=== PATIENT | male | born 1955 | race Caucasian/White ===

== ENCOUNTER 2018-03-29 13:49 | Emergency (ER) | payer OTHER ==
--- NOTE | 2018-03-29 14:55 | EDPHY ---
H & P Time Seen by Provider: 03/29/18 14:53 HPI/ROS: Chief complaint. Abdominal pain HPI. 63-year-old male presents emergency department with abdominal pain that began this morning. Initially it was somewhat generalized and now is right lower quadrant and radiates to his right testicle. He has no urinary symptoms. No nausea vomiting diarrhea. Not worse with movement but just hurts all the time. No fever. No chest pain or shortness of breath. No previous abdominal surgery or abdominal problems. ROS 10 systems were reviewed and negative with the exception of the elements mentioned in the history of present illness Past Medical/Surgical History: Eye surgery, orthopedic surgery, hypertension Social History: , daily smoker, no alcohol Smoking Status: Current every day smoker Physical Exam: General Appearance: Alert well-developed male moderate distress vital signs are stable Eyes: Pupils equal and round no pallor or injection. ENT, Mouth: Mucous membranes are moist. Respiratory: There are no retractions, lungs are clear to auscultation. Cardiovascular: Regular rate and rhythm. Gastrointestinal: Abdomen is soft with tenderness the in the right lower quadrant but especially in the right inguinal area. No masses. Normal bowel sounds. I stood the patient up and examined him for hernia and I do not see any evidence of direct or indirect hernia Neurological: Awake and alert, sensory and motor exams grossly normal. Skin: Warm and dry, no rashes. Musculoskeletal: Neck is supple nontender. Extremities symmetrical, full range of motion. Psychiatric: Patient is oriented X 3, there is no agitation. Constitutional: Initial Vital Signs Temperature (C) 36.5 C 03/29/18 13:54 Heart Rate 73 03/29/18 13:54 Respiratory Rate 18 03/29/18 13:54 Blood Pressure 137/88 H 03/29/18 13:54 O2 Sat (%) 96 03/29/18 13:54 O2 Delivery Mode Room Air Allergies/Adverse Reactions: No Known Allergies Allergy (Unverified 10/09/13 02:16) Home Medications: Medication Instructions Recorded Amoxicillin 10/09/13 Flexeril 10/09/13 amLODIPine BESYLATE [Norvasc 5 mg 5 mg PO DAILY #30 tab 10/09/13 (RX)] oxyCODONE/APAP 5/325 [Percocet 1 - 2 tab PO Q4H PRN #15 tab 10/09/13 5/325 (RX)] traMADOL 10/09/13 Tamsulosin HCl [Flomax 0.4 MG (*)] 0.4 mg PO DAILY #10 cap 03/29/18 Medical Decision Making - Diagnostics Imaging Results: Imaging Impressions Abdomen CT 03/29/18 15:13 Impression: 1. Distended bladder with mild dilatation of the collecting system and ureters. Moderately enlarged prostate. Consider bladder outlet obstruction. 2. 3 mm calcification along the anterior wall of the gallbladder that could represent small calculus or calcified polyp. 3. Heterogeneous enhancement of the liver probably from mild hepatic steatosis. 4. Stable benign-appearing bibasilar pulmonary nodules. 5. No CT evidence of appendicitis, abscess or bowel obstruction. Findings discussed with Lowell Hutchins M.D. at 16:33 hour, 03/29/2018. CT abdomen pelvis with IV contrast reviewed by me and discussed with Dr. Emanuel shows a distended bladder with 1800 mL of urine in the bladder. Distended ureters bilaterally. No evidence for kidney stone. Normal appendix. BPH is present Procedures: IV normal saline Morphine, Zofran IV ED Course/Re-evaluation: Re-evaluation at 4:35 p.m.. Patient is stable. Patient and I discussed imaging and lab results. We discussed treatment plan including recommendation for catheter. He expresses understanding and agreement Bladder scan shows greater than 1300 mL of urine after voiding Salas catheter is placed--greater than 1 L out when I checked in urine still flowing into the Salas I consulted discussed the case with Dr. Juarez for Urology who recommends a dose of Flomax now and prescription. He recommends leaving the catheter in and will see the patient in the next few days. I discussed this treatment plan with patient and family. We discussed CT and lab results. We discussed importance of follow-up and further evaluation. They expressed understanding and agreement Differential Diagnosis: I considered kidney stone, urinary tract infection, appendicitis, hernia. Patient has BPH with a chronically distended bladder. - Data Points Laboratory Results: Laboratory Results 03/29/18 14:40 03/29/18 14:40 03/29/18 03/29/18 03/29/18 15:55 14:40 14:40 WBC 9.46 10^3/uL 10^3/uL (3.80-9.50) RBC 5.00 10^6/uL 10^6/uL (4.40-6.38) Hgb 15.6 g/dL g/dL (13.7-17.5) Hct 46.0 % % (40.0-51.0) MCV 92.0 fL fL (81.5-99.8) MCH 31.2 pg pg (27.9-34.1) MCHC 33.9 g/dL g/dL (32.4-36.7) RDW 13.0 % % (11.5-15.2) Plt Count 234 10^3/uL 10^3/uL (150-400) MPV 11.1 fL fL (8.7-11.7) Neut % (Auto) 69.2 % % (39.3-74.2) Lymph % (Auto) 24.6 % % (15.0-45.0) [place] % (Auto) 4.8 % % (4.5-13.0) Eos % (Auto) 0.7 % % (0.6-7.6) Baso % (Auto) 0.4 % % (0.3-1.7) Nucleat RBC Rel Count 0.0 % % (0.0-0.2) Absolute Neuts (auto) 6.54 10^3/uL H 10^3/uL (1.70-6.50) Absolute Lymphs (auto) 2.33 10^3/uL 10^3/uL (1.00-3.00) Absolute Monos (auto) 0.45 10^3/uL 10^3/uL (0.30-0.80) Absolute Eos (auto) 0.07 10^3/uL 10^3/uL (0.03-0.40) Absolute Basos (auto) 0.04 10^3/uL 10^3/uL (0.02-0.10) Absolute Nucleated RBC 0.00 10^3/uL 10^3/uL (0-0.01) Immature Gran % 0.3 % % (0.0-1.1) Immature Gran # 0.03 10^3/uL 10^3/uL (0.00-0.10) Sodium 139 mEq/L mEq/L (135-145) Potassium 3.9 mEq/L mEq/L (3.5-5.2) Chloride 109 mEq/L mEq/L (97-110) Carbon Dioxide 22 mEq/l mEq/l (22-31) Anion Gap 8 mEq/L mEq/L (6-14) BUN 15 mg/dL mg/dL (7-23) Creatinine 0.6 mg/dL L mg/dL (0.7-1.3) Estimated GFR > 60 Glucose 119 mg/dL H mg/dL (70-100) Calcium 10.0 mg/dL mg/dL (8.5-10.4) Urine Color YELLOW Urine Appearance MODERATELY TURBID Urine pH 7.0 (5.0-7.5) Ur Specific [place] 1.009 (1.002-1.030) Urine Protein NEGATIVE (NEGATIVE) Urine Ketones NEGATIVE (NEGATIVE) Urine Blood 1+ H (NEGATIVE) Urine Nitrate NEGATIVE (NEGATIVE) Urine Bilirubin NEGATIVE (NEGATIVE) Urine Urobilinogen NEGATIVE EU EU (0.2-1.0) Ur Leukocyte Esterase NEGATIVE (NEGATIVE) Urine RBC NONE SEEN /hpf /hpf (0-3) Urine WBC 0-1 /hpf /hpf (0-3) Ur Epithelial Cells NONE SEEN /lpf /lpf (NONE-1+) Amorphous Sediment PRESENT /hpf /hpf (NONE-1+) Urine Bacteria TRACE /hpf H /hpf (NONE SEEN) Urine Mucus TRACE /lpf /lpf (NONE-1+) Urine Glucose NEGATIVE (NEGATIVE) Medications Given: Discontinued Medications Sodium Chloride (Ns) 1,000 mls @ 0 mls/hr IV EDNOW ONE; Wide Open PRN Reason: Protocol Stop: 03/29/18 15:14 Last Admin: 03/29/18 15:20 Dose: 1,000 mls Morphine Sulfate (Morphine) 6 mg IVP EDNOW ONE Stop: 03/29/18 15:14 Last Admin: 03/29/18 15:20 Dose: 6 mg Ondansetron HCl (Zofran) 4 mg IVP EDNOW ONE Stop: 03/29/18 15:14 Last Admin: 03/29/18 15:20 Dose: 4 mg Departure - Departure Disposition: Home, Routine, Self-Care Clinical Impression: Urinary retention due to benign prostatic hyperplasia Condition: Good Instructions: Enlarged Prostate (BPH) (ED), Urinary Retention in Men (ED), Salas Catheter Placement and Care (ED) Additional Instructions: Flomax daily to help improve urine flow . Call Dr. Juarez is office tomorrow morning to arrange follow-up in the next 2- 3 days. Return for worsening symptoms Referrals: Moises Valenzuela MD [Primary Care Provider] - As per Instructions Tomas Juarez MD [Medical Doctor] - 2-3 days, call for appt. Prescriptions: Tamsulosin HCl [Flomax 0.4 MG (*)] 0.4 mg PO DAILY #10 cap
[2018-03-29 14:56] LABS: PLATELET COUNT 234 10^3/uL (150-400)
[2018-03-29] MEDS ORDERED: ONDANSETRON 4 MG/2 ML VIAL IVP ONE (15:13)
[2018-03-29] MEDS ORDERED: NS 1,000 ML IV ONE (15:13)
[2018-03-29] MEDS ORDERED: IOPAMIDOL (ISOVUE-300) 100 ML BTL ONE (15:27)
[2018-03-29] MEDS ORDERED: TAMSULOSIN HCL 0.4 MG CAP PO ONE (17:09)
[2018-03-29 17:40] VITALS: BP 135/70
== END 2018-03-29 17:40 | disposition home or self-care (01) ==
PROC: 0T9B70Z Drainage of Bladder with Drainage Device, Via Natural or Artificial Opening (ICD-10-PCS; principal; 2018-03-29)
DX: R33.9 Retention of urine, unspecified (principal); N40.0 Benign prostatic hyperplasia without lower urinary tract symptoms; E86.9 Volume depletion, unspecified
CPT/HCPCS: 96374; J2270; J2405; Q9967

== ENCOUNTER 2018-03-30 11:59 | Observation (INO) | payer OTHER ==
--- NOTE | 2018-03-30 12:16 | EDPHY ---
H & P Stated Complaint: R groin pain - Personal History Current Tetanus/Diphtheria Vaccine: Yes Current Tetanus Diphtheria and Acellular Pertussis (TDAP): Yes - Medical/Surgical History Hx Asthma: No Hx Chronic Respiratory Disease: No Hx Diabetes: No Hx Cardiac Disease: No Hx Renal Disease: No Hx Cirrhosis: No Hx Alcoholism: No Hx HIV/AIDS: No Hx Splenectomy or Spleen Trauma: No Other PMH: eye surgery, urinary retention, HTN, - Social History Smoking Status: Current every day smoker Time Seen by Provider: 03/30/18 12:16 Constitutional: Initial Vital Signs Temperature (C) 36.7 C 03/30/18 12:04 Heart Rate 67 03/30/18 12:04 Respiratory Rate 16 03/30/18 12:04 Blood Pressure 142/89 H 03/30/18 12:04 O2 Sat (%) 98 03/30/18 12:04 O2 Delivery Mode Room Air Allergies/Adverse Reactions: No Known Allergies Allergy (Unverified 03/30/18 12:03) Home Medications: Medication Instructions Recorded amLODIPine BESYLATE [Norvasc 5 mg 5 mg PO DAILY #30 tab 10/09/13 (RX)] Tamsulosin HCl [Flomax 0.4 MG (*)] 0.4 mg PO DAILY #10 cap 03/29/18 HYDROmorphone HCL [Dilaudid 2 mg 2 mg PO Q6-8PRN PRN #14 tab 03/30/18 (*)] Ibuprofen [Motrin] 800 mg PO Q8 #20 tab 03/30/18 Ondansetron Odt [Zofran Odt 4 mg 4 mg PO Q4 PRN #10 tab 03/30/18 (RX)] Medical Decision Making - Diagnostics Imaging Results: Imaging Impressions Abdomen/Pelvis Ultrasound 03/30/18 12:25 Impression: No evidence of hydronephrosis Testicular Ultrasound 03/30/18 13:58 Impression: 1. Nonspecific, subtle heterogeneity of the right testicle compared to the left with symmetric color Doppler flow. Differential considerations include trauma, orchitis, or partial torsion/detorsion, clinical correlation is recommended as is short-term sonographic follow-up. These findings were discussed with Domenic Cleaning by telephone at 2:59 PM on 03/30/2018. Lumbar Spine MRI 03/30/18 15:23 Impression: 1. Mild degenerative disk disease and mild facet arthropathy resulting in minimal to mild central canal stenosis. 2. Benign L1 vertebral hemangioma without compression fractures or significant stenosis. 3. Please see above findings at specific disk levels. Findings and recommendations discussed with Emergency Department physician, Annel Denise at 1733 hour, 03/30/2018. Final report concurs with initial preliminary interpretation. ED Course/Re-evaluation: CHIEF COMPLAINT: Right groin pain HISTORY OF PRESENT ILLNESS: This patient is a 63 year old male with history of hypertension and urinary retention. He woke yesterday woke with abdominal pain which he describes as a cramping sensation like gas. He was evaluated here in the ED and found to have 1800mL of urine on the bladder scanner. He had a Salas placed and was discharge home. A that time he additional complained of right groin pain which radiates to right testicle. This persists today. He feels as if he was "kicked in the groin". He denies any penile pain or discomfort with manipulation of the Salas catheter. He denies history of kidney stones. No fever, nausea, vomiting, diarrhea, or other associated symptoms. REVIEW OF SYSTEMS: A comprehensive 10 system review of systems is otherwise negative aside from elements mentioned in the history of present illness and medical decision making. PHYSICAL EXAM: HR, BP, O2 Sat, RR. Temp noted General Appearance: Alert, well hydrated, appropriate, and non-toxic appearing. Head: Atraumatic without scalp tenderness or obvious injury Eyes: Pupils equal, round, reactive to light and accommodation, EOMI, no trauma , no injection. Ears: Clear bilaterally, no perforation, normal landmarks Nose: Atraumatic, no rhinorrhea, clear. Throat: There is no erythema or exudates, no lesions, normal tonsils, mucus membranes moist. Neck: Supple, 2+ carotid upstroke, nontender, no lymphadenopathy. Respiratory: No retractions, no distress, no wheezes, and no accessory muscle use. Lungs are clear to auscultation bilaterally. Cardiovascular: Regular rate and rhythm, no murmurs, rubs, or gallops. Bilateral carotid, radial, dorsalis pedis, and posterior tibial pulses intact. Good capillary refill all extremities. Gastrointestinal: Abdomen is soft, nontender, non-distended, no masses, no rebound, no guarding, no peritoneal signs. : Salas catheter in place. No apparent swelling, erythema, discharge. Musculoskeletal: Normal active ROM of all extremities, atraumatic. Neurological: Alert, appropriate, and interactive. The patient has normal DTRs and non-focal cranial nerves, motor, sensory, and cerebellar exam. Skin: No rashes, good turgor, no nodules on palpation. Past medical history: Hypertension Past surgical history: Noncontributory Family history: Noncontributory Social history: . Lives in [place]. Does not abuse tobacco, drugs, or alcohol. DIFFERENTIAL DIAGNOSIS: The differential diagnosis for the patient's abdominal pain included but was not limited to appendicitis, cholecystitis, hernias, testicular torsion, gastritis, and urinary tract infection. MEDICAL DECISION [id number] y/o male presents with right groin pain which radiates to the right testicle. Plan for US abdomen/pelvis. Plan for UA. US abdomen/pelvis is negative for acute processes. UA is positive for hematuria. This may be due to Salas catheter vs. other acute processes including kidney stone. Reassessed patient. On exam, patient is exquisitely tender to the right testicle. Plan for testicular US for further evaluation. 15:[address] Talavera, radiologist. Testicular US negative for epididymitis, orchitis, torsion. Normal blood flow. Right testicle is slightly larger than the left, but no observable cause. (Domenic Cleaning) 3:00 p.m.-I assumed care of this patient at shift change. He presents with right lower quadrant pain is a and right scrotal tenderness. Ultrasound of the testicles is pending. 3:15 p.m.-ultrasound results are unremarkable and were discussed with the patient. He presents with severe right testicular pain and urinary retention. Studies today, including CT scan of the abdomen and pelvis, renal and testicular ultrasounds are all unremarkable. Laboratory studies from yesterday were negative. Exam today reveals an exquisitely tender right testicle, without swelling or overlying erythema; no paresthesia or swelling in the perineum. Pt uncomfortable going home. Given severe pain of unclear etiology, will admit this patient for further evaluation. MRI of the lumbar spine ordered to evaluate for possible cauda equina syndrome. The hospitalist service was consulted for admission. Dr. Fernandez was consulted. (Annel Denise) Differential Diagnosis: Differential diagnosis includes though it is not limited to testicular torsion, renal colic, epididymitis, acute orchitis, appendicitis, pyelonephritis, bowel perforation, small bowel obstruction. (Annel Denise) - Data Points Laboratory Results: Laboratory Results 03/30/18 14:08 03/30/18 14:08 03/30/18 03/30/18 03/30/18 14:08 14:08 12:30 WBC 10.73 10^3/uL H 10^3/uL (3.80-9.50) RBC 4.69 10^6/uL 10^6/uL (4.40-6.38) Hgb 14.6 g/dL g/dL (13.7-17.5) Hct 42.7 % % (40.0-51.0) MCV 91.0 fL fL (81.5-99.8) MCH 31.1 pg pg (27.9-34.1) MCHC 34.2 g/dL g/dL (32.4-36.7) RDW 13.1 % % (11.5-15.2) Plt Count 199 10^3/uL 10^3/uL (150-400) MPV 11.7 fL fL (8.7-11.7) Neut % (Auto) 67.9 % % (39.3-74.2) Lymph % (Auto) 25.0 % % (15.0-45.0) [place] % (Auto) 5.7 % % (4.5-13.0) Eos % (Auto) 0.7 % % (0.6-7.6) Baso % (Auto) 0.5 % % (0.3-1.7) Nucleat RBC Rel Count 0.0 % % (0.0-0.2) Absolute Neuts (auto) 7.29 10^3/uL H 10^3/uL (1.70-6.50) Absolute Lymphs (auto) 2.68 10^3/uL 10^3/uL (1.00-3.00) Absolute Monos (auto) 0.61 10^3/uL 10^3/uL (0.30-0.80) Absolute Eos (auto) 0.08 10^3/uL 10^3/uL (0.03-0.40) Absolute Basos (auto) 0.05 10^3/uL 10^3/uL (0.02-0.10) Absolute Nucleated RBC 0.00 10^3/uL 10^3/uL (0-0.01) Immature Gran % 0.2 % % (0.0-1.1) Immature Gran # 0.02 10^3/uL 10^3/uL (0.00-0.10) Sodium 139 mEq/L mEq/L (135-145) Potassium 4.0 mEq/L mEq/L (3.5-5.2) Chloride 109 mEq/L mEq/L (97-110) Carbon Dioxide 22 mEq/l mEq/l (22-31) Anion Gap 8 mEq/L mEq/L (6-14) BUN 14 mg/dL mg/dL (7-23) Creatinine 0.7 mg/dL mg/dL (0.7-1.3) Estimated GFR > 60 Glucose 90 mg/dL mg/dL (70-100) Calcium 9.8 mg/dL mg/dL (8.5-10.4) Urine Color YELLOW Urine Appearance HAZY Urine pH 6.0 (5.0-7.5) Ur Specific [place] 1.010 (1.002-1.030) Urine Protein NEGATIVE (NEGATIVE) Urine Ketones NEGATIVE (NEGATIVE) Urine Blood 3+ H (NEGATIVE) Urine Nitrate NEGATIVE (NEGATIVE) Urine Bilirubin NEGATIVE (NEGATIVE) Urine Urobilinogen NEGATIVE EU EU (0.2-1.0) Ur Leukocyte Esterase 1+ H (NEGATIVE) Urine RBC 50-182 /hpf H /hpf (0-3) Urine WBC 15-25 /hpf H /hpf (0-3) Ur Epithelial Cells TRACE /lpf /lpf (NONE-1+) Urine Bacteria TRACE /hpf H /hpf (NONE SEEN) Urine Mucus TRACE /lpf /lpf (NONE-1+) Urine Glucose NEGATIVE (NEGATIVE) Medications Given: Ceftriaxone Sodium/Dextrose (Rocephin 1 Gm (Premix)) 50 mls @ 100 mls/hr IV DAILY BRISA PRN Reason: Protocol Stop: 04/29/18 17:29 Last Admin: 03/30/18 18:16 Dose: 50 mls Oxycodone HCl (Oxycodone Ir) 5 - 10 mg PO Q3HRS PRN PRN Reason: Pain, Severe Able to Take PO Stop: 04/09/18 15:45 Last Admin: 03/30/18 18:15 Dose: 10 mg Discontinued Medications Hydromorphone HCl (Dilaudid) 1 mg IVP EDNOW ONE Stop: 03/30/18 13:58 Last Admin: 03/30/18 14:15 Dose: 1 mg Ketorolac Tromethamine (Toradol) 30 mg IVP EDNOW ONE Stop: 03/30/18 13:58 Last Admin: 03/30/18 14:15 Dose: 30 mg Ondansetron HCl (Zofran) 4 mg IVP EDNOW ONE Stop: 03/30/18 13:58 Last Admin: 03/30/18 14:15 Dose: 4 mg Departure - Departure Disposition: [facility] Inpatient Acute Clinical Impression: Testicular pain, right, Acute urinary retention Condition: Fair Report Scribed for: Domenic Cleaning Report Scribed by: Mora Whalen Date of Report: 03/30/18 Time of Report: 12:45
[2018-03-30] MEDS ORDERED: HYDROmorphONE/DILAUDID 2 MG/ML INJ IVP ONE (13:57)
[2018-03-30] MEDS ORDERED: ONDANSETRON 4 MG/2 ML VIAL IVP ONE (13:57)
[2018-03-30] MEDS ORDERED: KETOROLAC 30 MG/1 ML SDV IVP ONE (13:57)
[2018-03-30] MEDS ORDERED: HYDROmorphONE/DILAUDID 1 MG/ML INJ IVP PRN (15:46)
[2018-03-30] MEDS ORDERED: ONDANSETRON 4 MG/2 ML VIAL IVP PRN (15:46)
[2018-03-30] MEDS ORDERED: ONDANSETRON DISINTEGRATING 4 MG TAB PO PRN (15:46)
[2018-03-30] MEDS ORDERED: ACETAMINOPHEN 325 MG TAB PO PRN (15:46)
[2018-03-30 15:48] LABS: PLATELET COUNT 199 10^3/uL (150-400)
--- NOTE | 2018-03-30 16:00 | PDGENHP ---
<Michelle Schroeder - Last Filed: 03/30/18 17:00> History and Physical - Chief Complaint Right testicular pain - History of Present Illness 63 y/o male presents to the ED with worsening right testicular pain. Yesterday, he woke up with what felt like lower abdominal "gas" pain and mild right testicular pain. He continued to go on about his day and ignore this discomfort. He denies nausea, fevers, chills, constipation. However the pain continued and he decided to come into the emergency room where it was found that he had urinary retention. Abdominal CT at the time revealed moderately enlarged prostate and distended bladder and bilateral ureters. It was unremarkable for kidney stones or appendicitis. He was started on Flomax and a parmar catheter was placed; he was d/c'ed with instructions to f/u with urology in the next couple of days. After receiving the catheter, he reports his abdominal pain improved. However, he continued to have right testicular pain. His testicular pain worsened today to the point where "if the wind blew, it causes excruciating pain." Multiple imaging (ab/pelvis US, testicular US) have been unremarkable. Because of the unclear etiology, he will be admitted for observation for a further work-up. Awaiting MRI w/o contrast of lumbar spine r/o cauda equina. Past Medical/Surgical History 1. Hypertension 2. Urinary retention 3. Dyslipidemia 4. Thrombocytopenia Social 1. 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 Smokes five cigarettes a day, no illicit drug use. Drinks 2 glasses of wine/ day 3. Lives with spouse, Mattie, in [place] Vital Signs 116/82 68 HR 18 respirations 96% RA 36.7c History Information - Allergies/Home Medication List Allergies/Adverse Reactions: No Known Allergies Allergy (Unverified 03/30/18 12:03) I have personally reviewed and updated: family history, medical history, social history, surgical history Past Medical History: See HPI List - Surgical History Additional surgical history: See HPI list - Family History Additional family history: Adopted - Social History Smoking Status: Current every day smoker Alcohol Use: Occasionally Drug Use: None Review of Systems Review of Systems: ROS: 10pt was reviewed & negative except for what was stated in HPI & below Constitutional: Reports: no symptoms (Overall, feels healthy) EENMT: Reports: no symptoms Cardiac: Reports: no symptoms Respiratory: Reports: no symptoms Gastrointestinal: Reports: other (Testicular pain) Genitourinary: Reports: no symptoms Muscolosketal: Reports: no symptoms Skin: Reports: rash (Believes it is caused from the hay he has to carry around; saw a supervisor hanging and trimming and was given a topical steroid cream) Neurological: Reports: no symptoms Hematologic/Lymphatic: Reports: no symptoms Immunologic/Allergy: Reports: no symptoms Physical Exam Physical Exam: Lab data and imaging reviewed Imaging: see HPI list WBC: 10.73 UA: unremarkable considering a parmar catheter was placed yesterday Temp Pulse Resp BP Pulse Ox 36.7 C 68 18 116/82 H 96 03/30/18 12:04 03/30/18 15:28 03/30/18 15:28 03/30/18 15:28 03/30/18 15:28 Constitutional: no apparent distress, appears nourished, uncomfortable Eyes: PERRL, anicteric sclera, EOMI Ears, Nose, Mouth, Throat: moist mucous membranes, hearing normal, ears appear normal, no oral mucosal ulcers Cardiovascular: regular rate and rhythym, no murmur, rub, or gallop, No edema Peripheral Pulses: 2+: dorsalis-pedis (R) (Radial 2+), dorsalis-pedis (L) ( Radial 2+) Respiratory: no respiratory distress, no rales or rhonchi, clear to auscultation Gastrointestinal: normoactive bowel sounds, soft, non-tender abdomen, no palpable masses Genitourinary: other (Sensitive to the touch right testicle. 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), No mottled Musculoskeletal: full muscle strength, no muscle tenderness, normal joint ROM, no joint effusions Neurologic: AAOx3, sensation intact bilaterally, CN II-XII Intact Psychiatric: interacting appropriately, not anxious, not encephalopathic, thought process linear Lymph, Heme, Immunologic: no cervical LAD, no supraclavicular LAD Lab Data & Imaging Review 03/30/18 14:08 03/30/18 14:08 WBC 10.73 10^3/uL (3.80-9.50) H 03/30/18 14:08 RBC 4.69 10^6/uL (4.40-6.38) 03/30/18 14:08 Hgb 14.6 g/dL (13.7-17.5) 03/30/18 14:08 Hct 42.7 % (40.0-51.0) 03/30/18 14:08 MCV 91.0 fL (81.5-99.8) 03/30/18 14:08 MCH 31.1 pg (27.9-34.1) 03/30/18 14:08 MCHC 34.2 g/dL (32.4-36.7) 03/30/18 14:08 RDW 13.1 % (11.5-15.2) 03/30/18 14:08 Plt Count 199 10^3/uL (150-400) 03/30/18 14:08 MPV 11.7 fL (8.7-11.7) 03/30/18 14:08 Neut % (Auto) 67.9 % (39.3-74.2) 03/30/18 14:08 Lymph % (Auto) 25.0 % (15.0-45.0) 03/30/18 14:08 [place] % (Auto) 5.7 % (4.5-13.0) 03/30/18 14:08 Eos % (Auto) 0.7 % (0.6-7.6) 03/30/18 14:08 Baso % (Auto) 0.5 % (0.3-1.7) 03/30/18 14:08 Nucleat RBC Rel Count 0.0 % (0.0-0.2) 03/30/18 14:08 Absolute Neuts (auto) 7.29 10^3/uL (1.70-6.50) H 03/30/18 14:08 Absolute Lymphs (auto) 2.68 10^3/uL (1.00-3.00) 03/30/18 14:08 Absolute Monos (auto) 0.61 10^3/uL (0.30-0.80) 03/30/18 14:08 Absolute Eos (auto) 0.08 10^3/uL (0.03-0.40) 03/30/18 14:08 Absolute Basos (auto) 0.05 10^3/uL (0.02-0.10) 03/30/18 14:08 Absolute Nucleated RBC 0.00 10^3/uL (0-0.01) 03/30/18 14:08 Immature Gran % 0.2 % (0.0-1.1) 03/30/18 14:08 Immature Gran # 0.02 10^3/uL (0.00-0.10) 03/30/18 14:08 Sodium 139 mEq/L (135-145) 03/30/18 14:08 Potassium 4.0 mEq/L (3.5-5.2) 03/30/18 14:08 Chloride 109 mEq/L (97-110) 03/30/18 14:08 Carbon Dioxide 22 mEq/l (22-31) 03/30/18 14:08 Anion Gap 8 mEq/L (6-14) 03/30/18 14:08 BUN 14 mg/dL (7-23) 03/30/18 14:08 Creatinine 0.7 mg/dL (0.7-1.3) 03/30/18 14:08 Estimated GFR > 60 03/30/18 14:08 Glucose 90 mg/dL (70-100) 03/30/18 14:08 Calcium 9.8 mg/dL (8.5-10.4) 03/30/18 14:08 Urine Color YELLOW 03/30/18 12:30 Urine Appearance HAZY 03/30/18 12:30 Urine pH 6.0 (5.0-7.5) 03/30/18 12:30 Ur Specific [place] 1.010 (1.002-1.030) 03/30/18 12:30 Urine Protein NEGATIVE (NEGATIVE) 03/30/18 12:30 Urine Ketones NEGATIVE (NEGATIVE) 03/30/18 12:30 Urine Blood 3+ (NEGATIVE) H 03/30/18 12:30 Urine Nitrate NEGATIVE (NEGATIVE) 03/30/18 12:30 Urine Bilirubin NEGATIVE (NEGATIVE) 03/30/18 12:30 Urine Urobilinogen NEGATIVE EU (0.2-1.0) 03/30/18 12:30 Ur Leukocyte Esterase 1+ (NEGATIVE) H 03/30/18 12:30 Urine RBC 50-182 /hpf (0-3) H 03/30/18 12:30 Urine WBC 15-25 /hpf (0-3) H 03/30/18 12:30 Ur Epithelial Cells TRACE /lpf (NONE-1+) 03/30/18 12:30 Urine Bacteria TRACE /hpf (NONE SEEN) H 03/30/18 12:30 Urine Mucus TRACE /lpf (NONE-1+) 03/30/18 12:30 Urine Glucose NEGATIVE (NEGATIVE) 03/30/18 12:30 Assessment & Plan Plan: 1. Acute right testicular pain -Urology consulted and aware -Etiology unknown for acute pain - will perform MRI w/o contrast to r/o cauda equina -NPO diet for now until cauda equina has been r/o, then may ADAT -Manage pain via PO or IVP PRN 2. Newly diagnosed Urinary Retention -Keep parmar catheter in -Continue flomax -Urology consulted and aware 3. Hypertension -Stable; may continue amlodipine 4. Tobacco cessation -Counseled pt the importance of cessation; he is not interested at this time in cessation Diet: NPO VTE ppx: SCDs Code: Full Dispo: Admit to obs <Yuniel Clayton - Last Filed: 03/30/18 18:10> History and Physical - History of Present Illness Review of Systems Review of Systems: Physical Exam Physical Exam: Temp Pulse Resp BP Pulse Ox 36.7 C 62 18 135/85 H 92 03/30/18 16:45 03/30/18 16:45 03/30/18 16:45 03/30/18 16:45 03/30/18 16:45 Lab Data & Imaging Review 03/30/18 14:08 03/30/18 14:08 WBC 10.73 10^3/uL (3.80-9.50) H 03/30/18 14:08 RBC 4.69 10^6/uL (4.40-6.38) 03/30/18 14:08 Hgb 14.6 g/dL (13.7-17.5) 03/30/18 14:08 Hct 42.7 % (40.0-51.0) 03/30/18 14:08 MCV 91.0 fL (81.5-99.8) 03/30/18 14:08 MCH 31.1 pg (27.9-34.1) 03/30/18 14:08 MCHC 34.2 g/dL (32.4-36.7) 03/30/18 14:08 RDW 13.1 % (11.5-15.2) 03/30/18 14:08 Plt Count 199 10^3/uL (150-400) 03/30/18 14:08 MPV 11.7 fL (8.7-11.7) 03/30/18 14:08 Neut % (Auto) 67.9 % (39.3-74.2) 03/30/18 14:08 Lymph % (Auto) 25.0 % (15.0-45.0) 03/30/18 14:08 [place] % (Auto) 5.7 % (4.5-13.0) 03/30/18 14:08 Eos % (Auto) 0.7 % (0.6-7.6) 03/30/18 14:08 Baso % (Auto) 0.5 % (0.3-1.7) 03/30/18 14:08 Nucleat RBC Rel Count 0.0 % (0.0-0.2) 03/30/18 14:08 Absolute Neuts (auto) 7.29 10^3/uL (1.70-6.50) H 03/30/18 14:08 Absolute Lymphs (auto) 2.68 10^3/uL (1.00-3.00) 03/30/18 14:08 Absolute Monos (auto) 0.61 10^3/uL (0.30-0.80) 03/30/18 14:08 Absolute Eos (auto) 0.08 10^3/uL (0.03-0.40) 03/30/18 14:08 Absolute Basos (auto) 0.05 10^3/uL (0.02-0.10) 03/30/18 14:08 Absolute Nucleated RBC 0.00 10^3/uL (0-0.01) 03/30/18 14:08 Immature Gran % 0.2 % (0.0-1.1) 03/30/18 14:08 Immature Gran # 0.02 10^3/uL (0.00-0.10) 03/30/18 14:08 Sodium 139 mEq/L (135-145) 03/30/18 14:08 Potassium 4.0 mEq/L (3.5-5.2) 03/30/18 14:08 Chloride 109 mEq/L (97-110) 03/30/18 14:08 Carbon Dioxide 22 mEq/l (22-31) 03/30/18 14:08 Anion Gap 8 mEq/L (6-14) 03/30/18 14:08 BUN 14 mg/dL (7-23) 03/30/18 14:08 Creatinine 0.7 mg/dL (0.7-1.3) 03/30/18 14:08 Estimated GFR > 60 03/30/18 14:08 Glucose 90 mg/dL (70-100) 03/30/18 14:08 Calcium 9.8 mg/dL (8.5-10.4) 03/30/18 14:08 Urine Color YELLOW 03/30/18 12:30 Urine Appearance HAZY 03/30/18 12:30 Urine pH 6.0 (5.0-7.5) 03/30/18 12:30 Ur Specific [place] 1.010 (1.002-1.030) 03/30/18 12:30 Urine Protein NEGATIVE (NEGATIVE) 03/30/18 12:30 Urine Ketones NEGATIVE (NEGATIVE) 03/30/18 12:30 Urine Blood 3+ (NEGATIVE) H 03/30/18 12:30 Urine Nitrate NEGATIVE (NEGATIVE) 03/30/18 12:30 Urine Bilirubin NEGATIVE (NEGATIVE) 03/30/18 12:30 Urine Urobilinogen NEGATIVE EU (0.2-1.0) 03/30/18 12:30 Ur Leukocyte Esterase 1+ (NEGATIVE) H 03/30/18 12:30 Urine RBC 50-182 /hpf (0-3) H 03/30/18 12:30 Urine WBC 15-25 /hpf (0-3) H 03/30/18 12:30 Ur Epithelial Cells TRACE /lpf (NONE-1+) 03/30/18 12:30 Urine Bacteria TRACE /hpf (NONE SEEN) H 03/30/18 12:30 Urine Mucus TRACE /lpf (NONE-1+) 03/30/18 12:30 Urine Glucose NEGATIVE (NEGATIVE) 03/30/18 12:30 Assessment & Plan Assessment: Testicular pain, right (Acute) Plan: Patient was seen at bedside. I agree with the Physical exam as well as assessment and plan per AR Schroeder. The scrotal ultrasound did mention or orchitis in the differential. Given his leukocytosis as well as pyuria I will go ahead and and treat empirically with ceftriaxone. Will send blood for ESR, CRP, and procalcitonin. Await results of MRI
[2018-03-30] MEDS: oxyCODONE IR 5 MG TAB PO PRN (18:15)
[2018-03-31] MEDS: oxyCODONE IR 5 MG TAB PO PRN ×3 (02:55→12:57)
--- NOTE | 2018-03-31 07:43 | SOAPPROG ---
SOAP Progress Note Assessment/Plan: Assessment: 1. Acute urinary retention - probably due to BPH. 2. Probable early acute right epididymitis. Plan: 1. Continue indwelling Salas & Flomax. 2. Switch to 7-day course of Levaquin 500 mg daily on Thu. 3. Recommend light activity and scrotal support after discharge. 4. PAMELA w/ Dr. Fernandez next week. (dict # [id number]) Objective: Vital Signs Temp Pulse Resp BP Pulse Ox 36.6 C 62 15 113/72 93 03/31/18 02:57 03/31/18 02:57 03/31/18 02:57 03/31/18 02:57 03/31/18 02:57 Laboratory Results 03/30/18 19:18 03/30/18 03/31/18 04/01/18 05:59 05:59 05:59 Intake Total 350 Output Total 300 Balance 50 ICD10 Worksheet Patient Problems: Problems Problem Status Onset Acute urinary retention Acute Testicular pain, right Acute
[2018-03-31] MEDS ORDERED: TAMSULOSIN HCL 0.4 MG CAP PO SCH (09:00)
[2018-03-31] MEDS ORDERED: amLODIPine BESYLATE 5 MG TAB PO SCH (09:00)
[2018-03-31] MEDS ORDERED: HYDROmorphONE/DILAUDID 1 MG/ML INJ IVP PRN (10:07)
[2018-03-31 16:23] VITALS: BP 130/83
--- NOTE | 2018-03-31 16:46 | PDDCSUM ---
Discharge Summary Discharge Summary: Date of Admission: 03/30/2018 Date of Discharge: 03/31/2018 Consultants: urology (Dr Fernandez) Studies: 1. Testicular ultrasound x2 2. Renal ultrasound 3. Lumbar spine MRI Discharge Diagnoses: 1. Acute right epididymo-orchitis 2. Urinary retention 2/2 bladder outlet obstruction 3. Prostamegaly 4. HTN 5. H/o thrombocytopenia Brief Hospital Course: 63yo generally healthy M who initially presented to ED 1 day prior to admission with lower abdominal pain and was found to have bladder distention and enlarged prostate on CT. A post-void residual at that time showed 1.3L of retained urine. A parmar catheter was placed and he was started on flomax. He then presented again to the ED the following day due to acute right testicular pain that was persistent. He denied fevers. He had several imaging studies. An initial testicular ultrasound showed some subtle heterogeneity of the right testicle but normal Doppler flow. A repeat testicular ultrasound the following day showed some potential decreased blood flow along with decreased echogenicity to the superior portion of the right testis. After discussion with radiology and urology, and in context of the patients symptoms, this was felt to be due to an evolving orchitis. He was discharged with oral antibiotics and will follow up with urology next week. Medications: Please refer to EMR for complete list. The following were provided: 1. Levofloxacin 750mg PO QD #7 2. Oxycodone 5mg q6h PRN #20 Follow Up Plan: 1. To see Dr Fernandez next week to address urinary retention and monitor testicular symptoms 2. Follow up finalized urine culture Physical Exam: Vitals reviewed, afebrile. Alert and oriented, RRR withour m/r/g , lungs clear, abdomen soft, right testicle tenderness to palpation without erythema.
--- NOTE | 2018-03-31 16:58 | ASMTCMCOM ---
CM Note CM Note Notes: Plan of care reviewed in rounds. 63 year old male admitted with testicular pain, BPH and enlarged prostate. His pain is now under control. He is independent and has a follow up with Dr. Fernandez next week. He will receive instructions on parmar care. Plan: Dc to home no needs, Date Signed: 03/31/2018 04:58 PM Electronically Signed By:Brittani Arroyo RN
--- NOTE | 2018-03-31 17:00 | ASMTDCNOTE ---
Case Management Discharge Discharge Order Complete? Answers: Yes Patient to Obtain Answers: Independently Medications Transportation Arranged Answers: Family/Friends Discharge Comments Notes: Patient medically cleared for discharge to home. No needs identified. Independent. Date Signed: 03/31/2018 04:59 PM Electronically Signed By:Brittani Arroyo RN
--- NOTE | 2018-03-31 17:01 | ASMTLACE ---
YOVANI Length of stay for Answers: 1 day current admission Comorbidities - select Answers: Other Notes: HTN, BPH all that apply # of Emergency department Answers: 1-2 visits in the last 6 months Score: 3 Date Signed: 03/31/2018 05:00 PM Electronically Signed By:Brittani Arroyo RN
--- NOTE | 2018-04-05 17:27 | GCON ---
UROLOGY CONSULTATION NOTE DATE OF CONSULTATION: 03/30/2018 REASON FOR CONSULTATION: Urinary retention, right-sided scrotal pain. HISTORY: This is a 63-year-old gentleman who was in his otherwise state of good health when he devel oped acute urinary retention yesterday (on 03/29), which necessitated presentation to the emergency r oom and subsequent Salas catheter placement. Approximately 1800 cc residual was identified at that t emanuel, according to hospital records. The patient was discharged with a Salas catheter but then re-pre sented to the emergency room earlier today because of severe right inguinal and scrotal pain. The pa in was so severe that it necessitated admission to the hospital for further evaluation. The patient denies any prior history of urinary retention or similar episode, no prior episodes of inguinal/scrot al pain. The patient also denies any prior history of obstructive or irritative voiding symptoms. H owever, he did have a transient period of weakened urinary stream and increased frequency late last y ear when he was taking antihistamine at the same time. Otherwise, he denies any history of dysuria, gross hematuria, incontinence, or prior retention. Since admission, the right-sided scrotal pain has slightly improved on current medication regimen. He also denies any fevers, flu-like symptoms, nor precipitating genital trauma. PAST MEDICAL HISTORY: Hypertension, high cholesterol, thrombocytopenia. PAST SURGICAL HISTORY: Vasectomy and orthopedic procedures. ADMISSION MEDICATIONS: Amlodipine 5 mg daily, tamsulosin 0.4 mg daily (started through ER in 03/2010 ), oxycodone IR 5-10 mg q.6 hours p.r.n., ibuprofen 800 mg p.o. q.8 hours. Since admission, the rodrigue ent has also been started on Rocephin 1 g IV q. 24 hours. FAMILY HISTORY: Noncontributory. SOCIAL HISTORY: The patient and his live in the [place] area. He consumes approximately 2 glas ses of wine daily and currently smokes 1/2 pack of cigarettes daily and has smoked since age of 21. He has 4 children and is retired. REVIEW OF SYSTEMS: Unremarkable, other than mentioned above in the HPI and Past Medical History. PHYSICAL EXAM: GENERAL: Well-developed, well-nourished white male lying supine in bed, in no acute distress presently. VITAL SIGNS: Blood pressure 135/85, heart rate 62, respiratory rate 18, oxygen saturation 92% on room air, temperature 36.7 Celsius. He has been afebrile since admission. HEENT: Normocephalic, atraumatic. NECK: No deformities. CHEST: Unlabored respiratory pattern. HEART: Regular rate. ABDOMEN: Soft without palpable masses nor tenderness. GENITALIA: Circumcised phallus with a 16-Upper Sorbian Salas catheter in place draining clear urine. Scrotum remarkable for moderate diff use right testicular tenderness, possibly greatest in the epididymal head region. No evidence of brigitte lulitis nor intrascrotal pathologic process definitively appreciated. There is no suggestion of tors ion. EXTREMITIES: Warm without cyanosis, clubbing, or edema. VASCULAR: Normal femoral, dorsalis p jeremiah, and posterior tibial pulses bilaterally. NEUROLOGIC: He is alert and oriented. He answers al l questions appropriately with normal mood and affect. RADIOGRAPHIC STUDIES: 03/30/2018 scrotal sonography: Upon my review, there is slightly increased bl ood flow to the right testis. Otherwise, the study appears completely normal. 03/29/[address] scan: Upon my review, notable for mild bilateral renal pelvie ctasis without significant ureteral dilatation. The bladder is massively distended with probable enl arged prostate. No abnormal renal cortical masses are appreciated. LABORATORY: 03/30/2018: CBC notable for white blood cell count 10,700, which compares to 9400 yester day. Chemistry panel from today is normal, unchanged from 03/29/2018. No PSA is noted on record. : Urinalysis notable for 50-182 red blood cells, 15-25 white blood cells, trace bacteria per high-powered field. Urine culture has been sent with results pending. IMPRESSION: 1. Acute urinary retention with current indwelling Salas catheter. 2. Probable BPH with obstruction. 3. Probable right acute epididymitis. PLAN: 1. Continue indwelling Salas catheter and continuation of Flomax until he is seen in the office next week. 2. Recommend switching to oral Levaquin 500 mg daily for at least 7-10 days to treat probable early onset epididymitis. 3. I have recommended other conservative measures to treat the epididymitis including scrotal elevat ion when supine and minimizing activity for the next 48-72 hours. 4. He should follow up in my office next week. The patient has been instructed to call to schedule, and a business card has been provided. Thank you for this consultation. /[id number]/MODL
== END 2018-03-31 18:26 | disposition home or self-care (01) ==
LOC: F1N 16:36
PROVIDERS: ADMIT Family Medicine; ATTEND Internal Medicine
DX: N45.3 Epididymo-orchitis (principal); N40.1 Benign prostatic hyperplasia with lower urinary tract symptoms; N13.8 Other obstructive and reflux uropathy; R33.8 Other retention of urine; I10 Essential (primary) hypertension; F17.210 Nicotine dependence, cigarettes, uncomplicated; E78.5 Hyperlipidemia, unspecified; D69.6 Thrombocytopenia, unspecified
CPT/HCPCS: 72148; 76770; 76870; 96374; 96375; 96376; 99285; G0378; J0696; J1170; J1885; J2405